=== PATIENT | female | born 1995 | race African-American/Black ===

== ENCOUNTER 2018-12-09 20:13 | Emergency (ER) | payer OTHER ==
[2018-12-09 20:24] VITALS: BP 125/85
--- NOTE | 2018-12-09 21:14 | ED Physician Documentation ---
History of Present Illness - Stated complaint Stated Complaint: RASH ON LEGS/ARMS - Chief complaint Chief Complaint: General - Additonal information Additional information: This is a 22-year-old female who is presenting with some itchy red spots on her legs for the last several days. Patient recently visited her family in [place], she was outside and walking grass, she was also in the household that did have some pets. She began developing some red spots on her legs which are itchy, she has noticed a few new ones over the past day in her lower legs as well as 1-2 on her arms. None on her torso or back. They are not painful. She denies any fever, chills, and otherwise feels well. Her partner who was in the same room as her did get a couple spots on his feet as well, but he has not had as much itching as she has. Review of Systems Constitutional: denies: Fever Throat: denies: Oral lesions / sores GI: denies: Abdominal Pain Skin: reports: Rash PD PAST MEDICAL HISTORY - Past Medical History Past Medical History: No - Past Surgical History Past Surgical History: No - Present Medications Home Medications: Ambulatory Orders Medication Instructions Recorded Confirmed RX: Hydrocortisone 1% Oint 28 gm TP TID PRN 7 Days #1 tube 12/09/18 [Hydrocortisone] diphenhydrAMINE [Benadryl] 25 mg PO Q4-6H PRN #28 capsule 12/09/18 - Allergies Allergies/Adverse Reactions: Allergies Allergy/AdvReac Type Severity Reaction Status Date / Time No Known Drug Allergies Allergy Verified 12/09/18 20:21 - Social History Does the pt smoke?: No Smoking Status: Never smoker Does the pt drink ETOH?: No Does the pt have substance abuse?: No - Immunizations Immunizations are current?: Yes PD ED PE NORMAL - Vitals Vital signs reviewed: Yes - General General: Alert and oriented X 3, No acute distress - HEENT HEENT: PERRL - Neck Neck: Supple, no meningeal sign - Cardiac Cardiac: RRR, No murmur - Respiratory Respiratory: Clear bilaterally - Abdomen Abdomen: Normal bowel sounds, Soft, Non tender, Non distended - Derm Derm: Other (Scattered blanching maculopapular lesions which are around 1.5 cm in diameter, with some superficial excoriations over several of them. There is no pustules, no necrosis, no linear burrowing. These are scattered over the lower legs. There are 1-2 over the arms, other regions of the body are spared.) - Extremities Extremities: No deformity - Neuro Neuro: Alert and oriented X 3 - Psych Psych: Normal mood, Normal affect Results - Vitals Vitals: Vital Signs - 24 hr 12/09/18 20:21 Temperature 36.5 C Heart Rate 69 Respiratory 14 Rate Blood Pressure 125/85 H O2 Saturation 100 Oxygen O2 Source Room air PD MEDICAL DECISION MAKING - ED course Complexity details: considered differential (Insect bite, urticaria, bedbugs, fleas, allergic reaction, contact dermatitis) ED course: On examination patient is very well-appearing. She has some scattered papules over her lower legs, which do appear to be insect bites. Given her history have a high suspicion that these are flea bites. Her partner also has several similar spots on his feet, though he does not have as much itching. She has no rash on her torso, no involvement of mucosal regions, and the lesions are blanching, no signs of vasculitis or more serious rash at this time. She has had no obvious exposures to allergens, and no systemic symptoms. I discussed the likely diagnosis, recommend that she use topical cortisone, Benadryl as needed for itching, and that she check her house for insects or fleas. I recommended follow-up with her primary care provider, and reviewed return precautions with the patient. She was discharged home. Departure - Departure Disposition: 01 Home, Self Care Clinical Impression: Insect bite Qualifiers: Encounter type: initial encounter Site of insect bite: unspecified site Qualified Code(s): W57.XXXA - Bitten or stung by nonvenomous insect and other nonvenomous arthropods, initial encounter Condition: Good Instructions: Bites Stings Insect Follow-Up: Your,PCP [Other] Prescriptions: diphenhydrAMINE [Benadryl] 25 mg PO Q4-6H PRN #28 capsule PRN Reason: Itching RX: Hydrocortisone 1% Oint [Hydrocortisone] 28 gm TP TID PRN 7 Days #1 tube PRN Reason: Itching Comments: You were seen today for an itchy rash on your legs. I have a high suspicion these are flea bites or another insect bite. Please check your home for any insects such as fleas. You may take Benadryl for itching, this may make you somewhat drowsy. You can also use hydrocortisone cream over the spots. If you are having worsening symptoms or you continue to have new lesions, please follow-up with your primary care provider. Discharge Date/Time: 12/09/18 21:23
== END 2018-12-09 21:23 | disposition home or self-care (01) ==
LOC: ED 20:13
DX: S80.862A Insect bite (nonvenomous), left lower leg, initial encounter (principal); S80.861A Insect bite (nonvenomous), right lower leg, initial encounter; W57.XXXA Bitten or stung by nonvenomous insect and other nonvenomous arthropods, initial encounter
CPT/HCPCS: 99282; 99284

== ENCOUNTER 2019-03-14 10:01 | Emergency (ER) | payer OTHER ==
[2019-03-14 10:11] VITALS: BP 117/91
[2019-03-14] MEDS ORDERED: HYDROcod/ACETAM 5/325 MG TABLET PO STA (10:55)
--- NOTE | 2019-03-14 10:57 | ED Physician Documentation ---
PD HPI LOWER EXT INJURY - Stated complaint Stated Complaint: L KNEE PX - Chief complaint Chief Complaint: Ext Problem - History obtained from History obtained from: Patient - History of Present Illness PD HPI LOW EXT INJURY LOCATION: Left, Knee, Ankle Type of injury: Fall Where injury occurred: Other (dancing last night) Timing - onset: Last night Timing - details: Gradual onset Pain level max: 7 Pain level now: 6 Improved by: Rest, Ice, Immobilization Worsened by: Moving, Palpating Associated symptoms: Swelling. No: Weakness, Numbness, Tingling Contributing factors: No: Anticoagulated Recently seen: Not recently seen Review of Systems Constitutional: denies: Fever, Chills : denies: Now EGA Skin: denies: Rash Musculoskeletal: denies: Neck pain, Back pain Neurologic: denies: Headache, Head injury PD PAST MEDICAL HISTORY - Past Medical History Past Medical History: No - Past Surgical History Past Surgical History: No - Present Medications Home Medications: Ambulatory Orders Medication Instructions Recorded Confirmed Ibuprofen [Motrin] 800 mg PO Q8H PRN #30 tablet 03/14/19 - Allergies Allergies/Adverse Reactions: Allergies Allergy/AdvReac Type Severity Reaction Status Date / Time No Known Drug Allergies Allergy Verified 03/14/19 10:11 - Social History Does the pt smoke?: No Smoking Status: Never smoker Does the pt drink ETOH?: No Does the pt have substance abuse?: No - Immunizations Immunizations are current?: Yes PD ED PE NORMAL - Vitals Vital signs reviewed: Yes - General General: Alert and oriented X 3, No acute distress, Well developed/nourished - HEENT HEENT: PERRL, Moist mucous membranes - Neck Neck: Supple, no meningeal sign - Cardiac Cardiac: RRR, Strong equal pulses - Respiratory Respiratory: No respiratory distress, Clear bilaterally - Back Back: No spinal TTP - Derm Derm: Warm and dry - Extremities Extremities: Other (Mild swelling to the left knee. Diffuse tenderness to palpation, but mainly on the medial aspect of the knee. Also tender palpation over the lateral malleolus of the ankle with mild soft tissue swelling. Normal examination of the remainder of the tibia and fibula. Normal examination of the foot. Patient did not tolerate ligamentous testing well, but ACL, PCL, MCL and LCL appear to be grossly intact. There is a small joint effusion. NVI) - Neuro Neuro: Alert and oriented X 3 - Psych Psych: Normal mood, Normal affect Results - Vitals Vitals: Vital Signs - 24 hr 03/14/19 10:09 Temperature 37.2 C Heart Rate 95 Respiratory 18 Rate Blood Pressure 117/91 H O2 Saturation 99 Oxygen O2 Source Room air - Rads (name of study) Left knee x-ray Radiology: Prelim report reviewed, EMP read contemporaneously, See rad report (Small osseous fragments along the anterior joint space, suspect avulsion fractures possibly arising from the inferior patella. Consider knee MRI for further evaluation on nonurgent basis. ) Left ankle x-ray Radiology: Prelim report reviewed, EMP read contemporaneously, See rad report (No evidence of fracture or dislocation. ) PD MEDICAL DECISION MAKING - ED course Complexity details: reviewed results, re-evaluated patient, considered differential, d/w patient ED course: 23-year-old female with left knee internal derangement. There is a small free bone fragments, anterior to the joint as well. This can be further evaluated with an MRI. She will follow-up with her doctor for this. Ligament testing severely limited secondary to pain. She also has an ankle sprain. Placed in an articulating knee brace and given crutches. Patient counseled regarding signs and symptoms for which I believe and urgent re-evaluation would be necessary. Patient with good understanding of and agreement to plan and is comfortable going home at this time This document was made in part using voice recognition software. While efforts are made to proofread this document, sound alike and grammatical errors may occur. Departure - Departure Disposition: 01 Home, Self Care Clinical Impression: Knee internal derangement Qualifiers: Laterality: left Qualified Code(s): M23.92 - Unspecified internal derangement of left knee Left ankle sprain Qualifiers: Encounter type: initial encounter Involved ligament of ankle: unspecified ligament Qualified Code(s): S93.402A - Sprain of unspecified ligament of left ankle, initial encounter Condition: Good Instructions: ED Sprain Ankle W X Ray, ED Meniscal Injury Knee Poss Follow-Up: your,doctor in 1 week [Other] Prescriptions: Ibuprofen [Motrin] 800 mg PO Q8H PRN #30 tablet PRN Reason: PAIN &/OR FEVER Comments: Follow-up with your doctor within 1 week for repeat evaluation. Your knee will need to be retested when the swelling has decreased. It is recommended that you have an MRI of your knee as well. You may bear weight as tolerated. Small osseous fragments along the anterior joint space, suspect avulsion fractures possibly arising from the inferior patella. Consider knee MRI for further evaluation on nonurgent basis. Discharge Date/Time: 03/14/19 13:30
--- NOTE | 2019-03-14 11:41 | XRAY Report ---
Reason: fall, L knee pain Procedure Date: 03/14/2019 Accession Number: [id number] / [id number] Procedure: XR - Knee 4 View LT CPT Code: Final Report FULL RESULT: EXAM: LEFT KNEE RADIOGRAPHY EXAM DATE: 03/14/2019 11:16 AM. CLINICAL HISTORY: Left knee pain. COMPARISON: None. TECHNIQUE: 3 views. FINDINGS: Bones: Small osseous fragments are seen along the anterior joint space, possible avulsion fractures arising from the inferior patella. Joints: Joint effusion is present. Soft Tissues: Normal. No soft tissue swelling. IMPRESSION: Small osseous fragments along the anterior joint space, suspect avulsion fractures possibly arising from the inferior patella. Consider knee MRI for further evaluation on nonurgent basis. RADIA
--- NOTE | 2019-03-14 11:41 | XRAY Report ---
Reason: fall, L ankle pain Procedure Date: 03/14/2019 Accession Number: [id number] / [id number] Procedure: XR - Ankle 3 View LT CPT Code: Final Report FULL RESULT: EXAM: LEFT ANKLE RADIOGRAPHY EXAM DATE: 03/14/2019 11:16 AM. CLINICAL HISTORY: Fall, ankle pain COMPARISON: None. TECHNIQUE: 3 views. FINDINGS: Bones: No fracture or focal bony lesion. Joints: No evidence of dislocation. Soft Tissues: There is lateral ankle soft tissue swelling. IMPRESSION: No evidence of fracture or dislocation. RADIA
[2019-03-14] MEDS ORDERED: ONDANSETRON ODT 4 MG TABLET TL STA (11:57)
== END 2019-03-14 13:30 | disposition home or self-care (01) ==
LOC: ED 10:01
DX: M23.92 Unspecified internal derangement of left knee (principal); S93.402A Sprain of unspecified ligament of left ankle, initial encounter; W18.30XA Fall on same level, unspecified, initial encounter; Y93.41 Activity, dancing
CPT/HCPCS: 73564; 73610; 99283; A9270; Q0162

== ENCOUNTER 2019-03-18 09:55 | Outpatient (CLI) | payer OTHER ==
--- NOTE | 2019-03-18 22:30 | MRI Report ---
Reason: LT KNEE PAIN AND SWELLING Procedure Date: 03/18/2019 Accession Number: [id number] / [id number] Procedure: MRI - Knee LT W/O CPT Code: Final Report FULL RESULT: EXAM: LEFT KNEE MRI WITHOUT CONTRAST EXAM DATE: 03/18/2019 10:27 AM. CLINICAL HISTORY: Left knee pain and swelling. Post twisting running injury. COMPARISON: None. TECHNIQUE: Multiplanar, multisequence T1-weighted and fluid-sensitive sequences of the knee without contrast. Other: None. FINDINGS: Bones: Mild impaction fractures medial aspect of the patella and anterolateral aspect lateral femoral condyle. Osteochondral defect at the medial patellar facet measuring 2.0 cm transverse by 1.6 cm cranial caudal with the displaced osteochondral fragment along the anterior aspect lateral femoral condyle. Moderate lateral patellar subluxation. 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 Articular Cartilage: In addition to the osteochondral defect medial patellar facet, shallow fissuring/tearing extends over the median ridge. Medial Meniscus: The medial meniscus is intact. Lateral Meniscus: The lateral meniscus is intact. Cruciate Ligaments: The anterior and posterior cruciate ligaments are intact. Collateral Ligaments: The medial collateral and lateral collateral ligamentous structures are intact. Tendons: Minimal reactive edema versus patellar tendinopathy. Quadriceps, popliteus, and semimembranosus tendons unremarkable. Musculature: Moderate edema in the distal aspect vastus lateralis muscle. Mild edema in the distal aspect biceps femoris muscle. Subtle edema in the lateral head gastrocnemius muscle and vastus medialis muscle. Other: Large joint effusion with synovitis. In addition to the osteochondral fragment at the anterior aspect lateral femoral condyle, ill-defined 0.6 cm filling defect in the anterior intercondylar notch. No popliteal cyst. Edema and distortion at the femoral insertion medial patellofemoral ligament. Minimal edema at the patellar insertion. Edema and distortion at the distalmost aspect lateral retinaculum at the junction of the distal patellar tendon. Moderate subcutaneous edema over the anterior and lateral aspect of the knee. Moderate reactive edema in the fat pads. IMPRESSION: 1. Impaction fractures medial aspect patella and anterolateral aspect lateral femoral condyle, consistent with lateral patellar dislocation injury. 2. 2.0 cm osteochondral defect medial patellar facet with displaced fragment located anterior to the lateral femoral condyle. 3. Possible second 0.6 cm osteochondral fragment in the anterior intercondylar notch versus focal synovitis. 4. Strain and partial-thickness tear femoral insertion medial patellofemoral ligament. Strain and partial-thickness tear tibial insertion lateral retinaculum. 5. Mild to moderate reactive edema versus strains in the adjacent musculature, most prominent in the vastus lateralis muscle. 6. Large joint effusion with synovitis. 7. 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 RADIA
== END 2019-03-18 09:56 | disposition home or self-care (01) ==
LOC: DI 09:55
PROVIDERS: ATTEND Student in an Organized Health Care Education/Training Program
DX: S82.092A Other fracture of left patella, initial encounter for closed fracture (principal); S72.422A Displaced fracture of lateral condyle of left femur, initial encounter for closed fracture; S76.112A Strain of left quadriceps muscle, fascia and tendon, initial encounter; M25.462 Effusion, left knee

== ENCOUNTER 2019-03-23 12:04 | Day surgery (SDC) | payer OTHER ==
[2019-03-23 12:31] LABS: HCG UR QUAL NEGATIVE
[2019-03-23] MEDS ORDERED: LACTATED RINGERS 1,000 ML IV ONE ×2 (12:42→15:30)
[2019-03-23] MEDS ORDERED: BUPIVACAINE 0.25% PF 30 ML VIAL ONE (12:53)
[2019-03-23] MEDS ORDERED: EPINEPHrine 1 MG/ML AMP ONE ×2 (12:54→12:56)
--- NOTE | 2019-03-23 12:54 | ANESTHESIA ---
Pre-Anesthesia VS, & Labs - Diagnosis left knee pain - Procedure left knee arthroscopy Vital Signs: Temp Pulse Resp BP Pulse Ox 36.6 C 97 16 134/84 H 97 03/23/19 12:26 03/23/19 12:26 03/23/19 12:26 03/23/19 12:26 03/23/19 12:26 Height 5 ft 4 in Weight (kg) 57.15 kg Body Mass Index 22.8 - Is Patient ?: No Home Medications and Allergies Home Medications: Ambulatory Orders Hydrocodone/Acetaminophen [Hydrocodone-Acetamin 5-325 mg] 1 each PO PRN 03/19/19 oxyCODONE [Roxicodone] 1 PRN PRN 03/23/19 Hydrocodone/Acetaminophen [Hydrocodone-Acetamin 5-325 mg] 1 each PO PRN 03/19/19 oxyCODONE [Roxicodone] 1 PRN PRN 03/23/19 Allergies/Adverse Reactions: Allergies Allergy/AdvReac Type Severity Reaction Status Date / Time No Known Drug Allergies Allergy Verified 03/19/19 09:34 Anes History & Medical History - Anesthetic History Anesthesia Complications: reports: Other-see comment (no anesthetic history) Family history of Anesthesia Complications: Denies Family history of Malignant Hyperthermia: Denies - Medical History Cardiovascular: reports: None Pulmonary: reports: None Gastrointestinal: reports: None Urinary: reports: None Neuro: reports: None Musculoskeletal: reports: None, Other Endocrine/Autoimmune: reports: None Blood Disorders: reports: None Skin: reports: None Smoking Status: Never smoker Psychosocial: reports: No issues indicated Exam General: Alert, Oriented x3, Cooperative, No acute distress Dental: WNL Mouth Openin Fingerbreadth Neck Mobility: Normal Mallampati classification: I Thyromental Distance: less than 4 cm Respiratory: Lungs clear, Normal breath sounds, No respiratory distress, No accessory muscle use Cardiovascular: Regular rate, Normal S1, Normal S2, No murmurs Abdomen: Normal bowel sounds, Soft, No tenderness, No hepatospenomegaly, No masses Extremities: No clubbing, No cyanosis, No edema, Normal pulses, No tenderness/swelling Neurological: Normal gait, Normal speech, Strength at 5/5 X4 ext, Normal tone, Sensation intact, Cranial nerves 3-12 NL, Reflexes 2+ Mental/Cognitive Status: Alert/Oriented X3, Normal for patient Cognitive Status: Within normal limits Plan Anesthesia Type: General Consent for Procedure(s) Verified and Reviewed: Yes Code Status: Attempt Resuscitation ASA classification: 1-Healthy patient Is this case an emergency?: No
[2019-03-23] MEDS ORDERED: SCOPOLAMINE PATCH TOP ONE (13:08)
[2019-03-23] MEDS ORDERED: ROPIVACAINE 0.5% PF 20 ML AMPULE ONE (13:11)
[2019-03-23] MEDS ORDERED: CEFAZOLIN SODIUM IN 0.9 % NACL 2 GM/100 ML BAG IV ONE (13:14)
[2019-03-23] MEDS ORDERED: SODIUM CHLORIDE FLUSH 0.9% 10 ML SYRINGE ONE (13:15)
[2019-03-23] MEDS ORDERED: MIDAZOLAM 2 MG/2 ML VIAL IVP ONE (13:43)
[2019-03-23] MEDS ORDERED: DEXAMETHASONE 4 MG/ML VIAL IVP ONE (13:43)
[2019-03-23] MEDS ORDERED: PROPOFOL 200 MG/20 ML VIAL IVP ONE (13:43)
[2019-03-23] MEDS ORDERED: KETOROLAC 30 MG/ML VIAL IVP ONE (13:43)
[2019-03-23] MEDS ORDERED: ACETAMINOPHEN 1,000 MG/100 ML 100 ML IV ONE (13:43)
[2019-03-23] MEDS ORDERED: fentaNYL 100 MCG/2 ML VIAL IVP ONE (13:43)
[2019-03-23] MEDS ORDERED: ONDANSETRON 4 MG/2 ML VIAL IVP ONE (13:43)
[2019-03-23] MEDS ORDERED: BUPIVACAINE 0.25% PF 30 ML VIAL SUBQ ONE ×3 (16:30→17:05)
[2019-03-23] MEDS ORDERED: ONDANSETRON 4 MG/2 ML VIAL IVP PRN (17:32)
[2019-03-23] MEDS ORDERED: oxyCODONE 5 MG TABLET PO PRN (17:32)
[2019-03-23] MEDS: HYDROmorphone 1 MG/ML CARPUJECT ONE ×2 (17:42→17:58)
--- NOTE | 2019-03-23 17:53 | OPERATIVE REPORT ---
Operative Report - General Procedure Date: 03/23/19 - Procedure Note Estimated Blood Loss (mL): 25 - Other Other Information/Narrative: Date of Procedure: 03/23/2029 Planned Procedure: Left knee arthroscopy, osteochondral fragment debridement versus open reduction internal fixation, possible medial retinaculum plication, possible MPFL reconstruction with allograft Pre-op diagnosis: Left knee traumatic patellar dislocation, with loose intra- articular osteochondral fragment Procedure performed: Left knee arthroscopy, open reduction internal fixation inferomedial patellar osteochondral fragment, MPFL and medial tissue plication Post-op diagnosis: Left knee traumatic patellar dislocation with loose intra- articular osteochondral frag Primary Surgeon: ARYAN AGUERO Secondary Surgeon: Anesthesia: General LMA, regional EBL: 20 ml Tourniquet: 138 minutes, left. Implants: 5 Arthrex chondral darts Indication For Surgery: 23-year-old female who sustained a traumatic dislocation to her left patella when she tripped on a treadmill during her PRT. Radiographs, CT scan and MRI were consistent with a patellar dislocation with a sizable intra-articular free osteochondral fragment. Based on the presence of the osteochondral fragment, as well as relative size, we discussed recommendations for surgery in order to potentially facilitate repair of the fragment to the bone bed. The risks, benefits, and alternatives were discussed. Risks included pain, bleeding, infection, damage to nearby structures and cartilage, implant complications, post traumatic arthritis, continued patellar instability, lack of symptom relief, need for further surgery, DVT, PE, stroke, and . Written consent was obtained. Examination Under Anesthesia: Not performed, in order to minimize potential trauma to the intra-articular fragment Diagnostic Arthroscopy: Large osteochondral fragment in the anterior lateral joint Patella cartilage large inferomedial defect. Trochlear cartilage grossly normal. Medial femoral condyle cartilage grossly normal. Medial tibial plateau cartilage grossly normal . Medial meniscus root appeared intact, no tears appreciated. ACL was stable to probing. PCL was stable to probing. The lateral compartment was not well visualized in order to not displace or further damage the osteochondral fragment. Procedure in Detail: The patient was met in the pre-operative hold area. The patient verified the surgical site as the left knee. The patient then met with anesthesia and a regional field block was placed and then she was brought back to the operating room. The patient was placed supine on the operating table. A general anesthetic was administered and LMA was placed. A nonsterile bump was placed into the left buttock. A well-padded tourniquet was placed on the left thigh. The left lower extremity was then prepped and draped in the usual sterile fashion. A surgical timeout was then performed. The correct patient, the correct procedure, and the correct surgical site were confirmed by everyone in the room. Perioperative antibiotics had been administered. The gracilis allograft was verified in the freezer. After surgical timeout and administration of antibiotics the Escmarch was used to exsanguinate the left lower extremity and the tourniquet was raised. An 11 blade scalpel was used to make an anterolateral and anteromedial arthroscopic portal. The arthroscope was introduced into the knee. A limited diagnostic arthroscopy was performed with the above-stated findings. Once the fragment was visualized and found to contain a large portion of the articular cartilage, the procedure was converted to open. An approximately 6 inch midline incision was drawn over the anterior knee, and the skin so cutaneous tissue was sharply incised with a 10 blade. Subcutaneous tissues were further sharply dissected in line with the incision after cauterization of small crossing vessels to expose the retinaculum, and patella. Full-thickness flaps were developed medially and laterally, and the planned arthrotomy was marked out using the Bovie just lateral to the lateral edge of the VMO, proceeding distally between the superior medial pole of the patella and the VMO, and then medially around the patella leaving in approximately 5 mm cuff of tissue attached to the patella. This incision was sharply made using a 10 blade, through all 3 layers of tissue, completing the medial arthrotomy, taking care not to injure the anterior horn of the medial meniscus. The patella was then laterally subluxed and everted approximately 90 degrees to present the deep face of it. The osteochondral defect was readily apparent along the inferomedial border, and the free fragment was carefully removed from the anterolateral joint. The free fragment was taken to the back table, and cleaned of any residual hematoma. Attention was then turned to repairing the donor site on the deep surface of the patella. The site was prepared gently using curettes. Impacted pieces of cortical bone were gently disimpacted using a Zortman elevator. Once the bony bed had been prepared, the fragment was manipulated into position and secured temporarily with 2 K wires. Fixation was then performed using a sequence of 5 Arthrex chondral darts, with removal of the K wire prior to the last 2 darts. The fragment was reapproximated well to the ute cartilage. And then a series of interrupted [id number] 6-0 Vicryl sutures were placed between the free fragment's cartilage, and the ute cartilage on the patella. Interrupted 3-0 Vicryl in [id number] fashion was used to secure the cartilage to the edge of the patella. Satisfied with repair, the knee was irrigated, and we began our closure. The medial soft tissues at the superior medial corner of the knee were plicated in a pants over vest fashion using two #2 FiberWire's and pants over vest fashion. This was felt to have good tension, and then the arthrotomy was then closed using a running 0 PDS. The tourniquet was let down, the wound was again irrigated and the deep layer was closed using interrupted 0 Vicryl, followed by interrupted 2-0 Vicryl and a running 3-0 Monocryl subcuticular for the skin. Mastisol and Steri-Strips were placed, and 10 cc of quarter percent Marcaine plain was placed david- incisional. The wound was then dressed with Xeroform, and an Aquacel Ag dressing was applied. To provide gentle external compressions and 4 x 4's followed by an ABD were then applied to the anterior knee and held in place with a DANNY stocking. The surgical drapes were removed. The ROM brace was placed and was locked out in full extension. She was awakened and transferred to the recovery room. Postoperative plan: 1. Discharge home from the same day surgery facility once discharge criteria has been met. 2. NWB, knee locked in extension until follow-up. 3. Return to clinic next week for wound check. 4. Full strength aspirin 28 days for DVT prophylaxis.
[2019-03-23 19:45] VITALS: BP 124/64
--- NOTE | 2019-03-23 21:28 | ANESTHESIA PROCEDURE NOTE ---
Diagnosis: knee pain Procedure: left femoral nerve block Consent for Procedure(s) Verified and Reviewed: Yes Height and Weight: Height 5 ft 4 in Weight (kg) 55.4 kg Body Mass Index 22.8 Vital Signs: Temp Pulse Resp BP Pulse Ox 36.8 C 89 18 124/64 98 03/23/19 19:35 03/23/19 19:35 03/23/19 19:35 03/23/19 19:35 03/23/19 19:35 Allergies No Known Drug Allergies Allergy (Verified 03/19/19 09:34) Requesting Provider: Scot Location: PACU ASA classification: 1-Healthy patient Anes. Monitoring and Equipment: Non-invasive BP, Pulse oximetery, Sterile prep and drape Anes. Procedure Start Time: 17:45 Anes. Procedure Stop Time: 17:55 Procedure Notes: Patient experiencing pain despite OLGA block and 10cc local by surgeon. Femoral nerve block by me with US, Ropivicaine 0.5% 20cc total injected. Patient had complete pain relief in 10mins
== END 2019-03-23 19:50 | disposition home or self-care (01) ==
LOC: SDS 12:04 → MS2 18:10 → SDS 19:50
PROVIDERS: ATTEND Orthopaedic Surgery
PROC: 0SJD4ZZ Inspection of Left Knee Joint, Percutaneous Endoscopic Approach (ICD-10-PCS; 2019-03-23)
PROC: 0QSF04Z Reposition Left Patella with Internal Fixation Device, Open Approach (ICD-10-PCS; principal; 2019-03-23 13:30)
DX: S82.012A Displaced osteochondral fracture of left patella, initial encounter for closed fracture (principal); Z53.33 Arthroscopic surgical procedure converted to open procedure
CPT/HCPCS: 81025

== ENCOUNTER 2019-03-24 12:58 | Outpatient (CLI) | payer OTHER | END 2019-03-24 12:59 | disposition critical access hospital (66) | LOC: EMS 12:58 | PROVIDERS: ATTEND Surgery | DX: M25.562 Pain in left knee (principal) | CPT/HCPCS: A0425; A0427 ==

== ENCOUNTER 2019-03-24 13:31 | Emergency (ER) | payer OTHER ==
[2019-03-24] MEDS ORDERED: HYDROmorphone 1 MG/ML CARPUJECT IVP STA ×2 (13:47→15:25)
[2019-03-24] MEDS ORDERED: KETOROLAC 30 MG/ML VIAL IVP STA (13:47)
--- NOTE | 2019-03-24 14:03 | ED Physician Documentation ---
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 She underwent operative repair yesterday. The block wore off in the night and she has been unable to control the pain since that time. Has been taking oxycodone every 4 hours. Taking Motrin and Tylenol as well. Received 7 mg of morphine with EMS with no relief of pain. She is in a knee immobilizer. No fevers. Nothing makes it better or worse. Review of Systems Ten Systems: 10 systems reviewed and negative Constitutional: denies: Fever, Chills Respiratory: denies: Cough GI: denies: Vomiting, Diarrhea Skin: denies: Rash Musculoskeletal: denies: Neck pain, Back pain Neurologic: denies: Headache PD PAST MEDICAL HISTORY - Past Medical History Cardiovascular: None Respiratory: None Neuro: None Endocrine/Autoimmune: None GI: None : None HEENT: None Psych: None Musculoskeletal: None, Other Derm: None - Past Surgical History Past Surgical History: No - Present Medications Home Medications: Ambulatory Orders Medication Instructions Recorded Confirmed Ibuprofen [Motrin] 800 mg PO Q8H PRN #30 tablet 03/14/19 oxyCODONE [Roxicodone] 1 - 2 tab PO Q4HR PRN 03/23/19 03/24/19 Acetaminophen [Tylenol] 3 tab PO Q8HR PRN 03/24/19 03/24/19 Aspirin EC [Ecotrin] 1 tab PO DAILY 03/24/19 03/24/19 Docusate Calcium 240 mg PO PRN PRN 03/24/19 03/24/19 Gabapentin 100 mg PO TID #30 capsule 03/24/19 HYDROmorphone [Dilaudid] 2 - 4 mg PO Q4H PRN #30 tablet 03/24/19 - Allergies Allergies/Adverse Reactions: Allergies Allergy/AdvReac Type Severity Reaction Status Date / Time No Known Drug Allergies Allergy Verified 03/24/19 13:40 - Social History Does the pt smoke?: No Smoking Status: Never smoker Does the pt drink ETOH?: No Does the pt have substance abuse?: No - Immunizations Immunizations are current?: Yes PD ED PE NORMAL - Vitals Vital signs reviewed: Yes - General General: Alert and oriented X 3, Well developed/nourished, Other (crying from pain) - HEENT HEENT: PERRL, Moist mucous membranes - Neck Neck: Supple, no meningeal sign - Cardiac Cardiac: RRR, Strong equal pulses - Respiratory Respiratory: No respiratory distress, Clear bilaterally - Abdomen Abdomen: Soft, Non tender, Non distended - Derm Derm: Warm and dry - Extremities Extremities: Other (L knee - Mild swelling. Dressing in place. No erythema. No drainage. And vi. Good distal pulses.) - Neuro Neuro: Alert and oriented X 3 - Psych Psych: Normal mood, Normal affect Results - Vitals Vitals: Oxygen O2 Source Room air - Labs Labs: Laboratory Tests 03/24/19 03/24/19 14:00 14:00 WBC 9.6 RBC 4.15 L Hgb 12.1 Hct 36.9 L MCV 88.9 MCH 29.2 MCHC 32.8 RDW 12.7 Plt Count 218 MPV 11.0 H Neut # (Auto) 5.9 Lymph # (Auto) 2.6 [place] # (Auto) 1.0 Eos # (Auto) 0.0 Baso # (Auto) 0.0 Absolute Nucleated RBC 0.00 Nucleated RBC % 0.0 Sodium 139 Potassium 3.0 L Chloride 108 Carbon Dioxide 21 Anion Gap 10.0 BUN 8 Creatinine 0.6 Estimated GFR (MDRD) 152 Glucose 103 H Calcium 8.5 PD MEDICAL DECISION MAKING - ED course Complexity details: reviewed old records, reviewed results, re-evaluated patient, considered differential, d/w patient, d/w color consultant ED course: 23-year-old female with uncontrolled pain status post a left knee operation yesterday. Greatly improved in the emergency department with hydromorphone. Dr. Ellison, orthopedics came and evaluated the patient in the emergency department and wrapped her leg in a bulky Carey dressing along with her knee immobilizer which was changed to 10 degrees of flexion. This seemed to help as well. No signs of infection. Will place her on pain medication for home and start gabapentin as well. Patient counseled regarding signs and symptoms for which I believe and urgent re-evaluation would be necessary. Patient with good understanding of and agreement to plan and is comfortable going home at this time This document was made in part using voice recognition software. While efforts are made to proofread this document, sound alike and grammatical errors may occur. Departure - Departure Disposition: 01 Home, Self Care Clinical Impression: Post-operative pain Condition: Good Instructions: ED Post Op Pain Follow-Up: Young Ellison MD [Provider Admit Priv/Credential] - Within 1 week Prescriptions: Gabapentin 100 mg PO TID #30 capsule HYDROmorphone [Dilaudid] 2 - 4 mg PO Q4H PRN #30 tablet PRN Reason: pain Comments: Return if you worsen. Follow-up with your doctor for further care. Go and fill the hydromorphone as this appears to work better for your pain. Do not drink alcohol or drive while on narcotic pain medicine. Note that many narcotic pain relievers also contain tylenol/acetaminophen. Please ensure that your total dose of acetaminophen from all sources does not exceed 3 grams (3000mg) per day. You may constipated on this medication, take a stool softener such as "Colace" twice a day while you are on it. Also recommend a akmo-qva-gmnoqlr laxative such as senna or MiraLAX any day that you do not have a bowel movement. If you received narcotic pain medication in the emergency department, do not drive or operate machinery for the next 24 hours. Discharge Date/Time: 03/24/19 17:52
[2019-03-24 14:08] LABS: BASOPHILS % (AUTO) 0.2 %; EOSINOPHILS % (AUTO) 0.1 %; HGB - HEMOGLOBIN 12.1 g/dL (12.0-16.0); LYMPHOCYTES # (AUTO) 2.6 10^3/uL (1.5-3.5); LYMPHOCYTES % (AUTO) 26.7 %; MEAN CORPUSCULAR HEMOGLOBIN 29.2 pg (27.0-31.0); MEAN CORPUSCULAR HGB CONC 32.8 g/dL (32.0-36.0); MEAN CORPUSCULAR VOLUME 88.9 fL (81.0-99.0); MONOCYTES % (AUTO) 10.7 %; NEUTROPHILS # (AUTO) 5.9 10^3/uL (1.5-6.6); PLT - PLATELET COUNT 218 10^3/uL (130-450); RED BLOOD COUNT 4.15 10^6/uL (4.20-5.40); RED CELL DISTRIBUTION WIDTH 12.7 % (12.0-15.0); WHITE BLOOD COUNT 9.6 x10^3/uL (4.8-10.8)
[2019-03-24 14:22] LABS: CALCIUM 8.5 mg/dL (8.5-10.3); CREATININE 0.6 mg/dL (0.4-1.0)
[2019-03-24] MEDS ORDERED: oxyCODONE 5 MG TABLET PO STA (14:38)
[2019-03-24] MEDS ORDERED: LORazepam 2 MG/ML VIAL IVP STA (15:01)
[2019-03-24] MEDS ORDERED: HYDROmorphone 2 MG TABLET PO STA (15:46)
[2019-03-24 17:36] VITALS: BP 112/62
--- NOTE | 2019-03-24 21:19 | PROVIDER PROGRESS NOTE ---
Subjective - Prog Note Date Prog Note Date: 03/24/19 - Subjective Subjective: 23yo F POD#1 s/p L knee arthroscopy and open patellar osteochondral fragment internal fixation. Pt called into Ortho clinic at [facility] late this morning with increasing pain to left knee despite appropriate medications. Her block wore off at around 1:00am and she had not taken any narcotics since hosiptal discharge, at around 11:00am, her pain continued to increase to the point of tears. Shortly after 12:00 I discussed the situation with her LPO, whom she is staying with, and recommended presentation to ED for evaluation and possible IV pain medication. I discussed patient with Dr Arellano, [facility] ED. Pt transported by [facility] to [facility]. Discussed pt with Dr Arellano following his eval. His exam was reassuring. I evaluated pt at bedside in ED at approx 15:30. She had received toradol IV, morphine IV, dilaudid IV and oxycodone PO. Only dilaudid IV seemed to help, with an appropriate response with 1mg IV. Objective - Vital Signs/Intake & Output Vital Signs: Vital Signs x48h Temp Pulse Resp BP Pulse Ox 03/24/19 17:30 75 14 112/62 99 03/24/19 17:00 76 16 116/74 98 03/24/19 16:30 72 16 118/63 95 03/24/19 16:00 89 16 123/83 H 97 03/24/19 15:30 77 14 104/75 98 03/24/19 15:02 75 20 121/76 99 03/24/19 14:30 79 16 116/65 98 03/24/19 14:00 82 18 125/82 H 99 03/24/19 13:38 37.0 C 93 24 110/78 99 - Objective General Appearance: positive: Severe distress (Severe pain at initial eval, responsive to a second dose of IV dilaudid and 1st dose of PO dilaudid.) Extremities: positive: Other (LLE examined: Surgical adhesive dressing intact and w/o strikethrough. Moderate, non-tense knee effusion, appropriate for POD#1. Thigh and leg compartments soft and compressible. ROM knee deferred 2/2 surgery. Actively flexes and extends toes and ankle. Sensation to light touch decreased distally, sensation to deep palpation intact. Palp DP. Foot warm and well perfused.) - Lab Results Fish Bones: 03/24/19 14:00 03/24/19 14:00 Other Labs: Lab Results x24hrs 03/24/19 03/24/19 Range/Units 14:00 14:00 WBC 9.6 (4.8-10.8) x10^3/uL RBC 4.15 L (4.20-5.40) 10^6/uL Hgb 12.1 (12.0-16.0) g/dL Hct 36.9 L (37.0-47.0) % MCV 88.9 (81.0-99.0) fL MCH 29.2 (27.0-31.0) pg MCHC 32.8 (32.0-36.0) g/dL RDW 12.7 (12.0-15.0) % Plt Count 218 (130-450) 10^3/uL MPV 11.0 H (7.9-10.8) fL Neut # (Auto) 5.9 (1.5-6.6) 10^3/uL Lymph # (Auto) 2.6 (1.5-3.5) 10^3/uL [place] # (Auto) 1.0 (0.0-1.0) 10^3/uL Eos # (Auto) 0.0 (0.0-0.7) 10^3/uL Baso # (Auto) 0.0 (0.0-0.1) 10^3/uL Absolute Nucleated RBC 0.00 x10^3/uL Nucleated RBC % 0.0 /100WBC Sodium 139 (135-145) mmol/L Potassium 3.0 L (3.5-5.0) mmol/L Chloride 108 (101-111) mmol/L Carbon Dioxide 21 (21-32) mmol/L Anion Gap 10.0 (6-13) BUN 8 (6-20) mg/dL Creatinine 0.6 (0.4-1.0) mg/dL Estimated GFR (MDRD) 152 (>89) Glucose 103 H (70-100) mg/dL Calcium 8.5 (8.5-10.3) mg/dL Assessment/Plan - Problem List (1) Post-operative pain Impression: 23yo F with post-operative pain not responsive to planned post-op medications (800mg ibuprofen q8h, 975mg acetaminophen q8 and 10mg oxycodone q4). Exam reassuring. I placed her in a gently compresive bulky velasco and alejandra wrap dressing. She had good response to IV and PO hydromorphone in ED, with a durable response to PO hydromorphone, so she was DC home on PO hydromorphone 2-4mg PO q4H. Pt also started on gabapentin 100mg to help cover neuropathic pain. Dr Arellano provided me with a update when she discharged. She will follow up in clinic next week for a wound check and futher medication adjustement as needed.
== END 2019-03-24 17:52 | disposition home or self-care (01) ==
LOC: EDUNIT# → ED 13:31
DX: G89.18 Other acute postprocedural pain (principal); M25.562 Pain in left knee; Z98.890 Other specified postprocedural states
CPT/HCPCS: 36415; 80048; 85025; 96374; 96375; 96376; 99283; 99285; A9270; J1170; J2060

== ENCOUNTER 2019-06-08 12:48 | Day surgery (SDC) | payer OTHER ==
[2019-06-08] MEDS ORDERED: ACETAMINOPHEN 1,000 MG/100 ML 100 ML IV ONE ×2 (12:51→15:26)
[2019-06-08] MEDS ORDERED: CELECOXIB 100 MG CAPSULE PO ONE (12:51)
[2019-06-08] MEDS ORDERED: GABAPENTIN 400 MG CAPSULE ONE (12:51)
[2019-06-08] MEDS ORDERED: CEFAZOLIN SODIUM IN 0.9 % NACL 2 GM/100 ML BAG IV ONE (12:52)
[2019-06-08] MEDS ORDERED: LACTATED RINGERS 1,000 ML IV ONE ×2 (12:57→16:08)
[2019-06-08 13:10] LABS: HCG UR QUAL NEGATIVE
[2019-06-08] MEDS ORDERED: EPINEPHrine 1 MG/ML AMP ONE (14:38)
[2019-06-08] MEDS ORDERED: BUPIVACAINE 0.25% PF 30 ML VIAL ONE (14:38)
--- NOTE | 2019-06-08 14:39 | ANESTHESIA ---
Pre-Anesthesia VS, & Labs - Diagnosis left knee manupulaton marian anesthesia, arthroscopic versus open lysis of adhesions Vital Signs: Temp Pulse Resp BP Pulse Ox 36.9 C 68 16 122/87 H 100 06/08/19 13:09 06/08/19 13:09 06/08/19 13:09 06/08/19 13:09 06/08/19 13:09 Height 5 ft 2 in Weight (kg) 54.1 kg Body Mass Index 20.9 - NPO >8 hours - Is Patient ?: No Home Medications and Allergies Home Medications: Ambulatory Orders No Known Home Medications 06/07/19 No Known Home Medications 06/07/19 Allergies/Adverse Reactions: Allergies Allergy/AdvReac Type Severity Reaction Status Date / Time No Known Drug Allergies Allergy Verified 06/08/19 13:07 Anes History & Medical History - Medical History Cardiovascular: reports: None Pulmonary: reports: None Gastrointestinal: reports: None Urinary: reports: None Neuro: reports: None Musculoskeletal: reports: Other Endocrine/Autoimmune: reports: None Blood Disorders: reports: None Skin: reports: None Smoking Status: Never smoker - Surgical History Orthopedic: 
--- NOTE | 2019-06-08 14:51 | ANESTHESIA ---
Pre-Anesthesia VS, & Labs - Diagnosis left knee arthrofibrosis - Procedure left knee arthroscopy Vital Signs: Temp Pulse Resp BP Pulse Ox 36.9 C 68 16 122/87 H 100 06/08/19 13:09 06/08/19 13:09 06/08/19 13:09 06/08/19 13:09 06/08/19 13:09 Height 5 ft 2 in Weight (kg) 54.1 kg Body Mass Index 20.9 - Is Patient ?: No Home Medications and Allergies Home Medications: Ambulatory Orders No Known Home Medications 06/07/19 No Known Home Medications 06/07/19 Allergies/Adverse Reactions: Allergies Allergy/AdvReac Type Severity Reaction Status Date / Time No Known Drug Allergies Allergy Verified 06/08/19 13:07 Anes History & Medical History - Anesthetic History Anesthesia Complications: reports: No previous complications Family history of Anesthesia Complications: Denies Family history of Malignant Hyperthermia: Denies - Medical History Cardiovascular: reports: None Pulmonary: reports: None Gastrointestinal: reports: None Urinary: reports: None Neuro: reports: None Musculoskeletal: reports: Other Endocrine/Autoimmune: reports: None Blood Disorders: reports: None Skin: reports: None Smoking Status: Never smoker Psychosocial: reports: No issues indicated - Surgical History Orthopedic: Other (left knee arthroscopy in 2018) Exam General: Alert, Oriented x3, Cooperative, No acute distress Dental: WNL Mouth Openin Fingerbreadth Neck Mobility: Normal Mallampati classification: II Thyromental Distance: 4-6 cm Respiratory: Lungs clear, Normal breath sounds, No respiratory distress, No accessory muscle use Cardiovascular: Regular rate, Normal S1, Normal S2, No murmurs Abdomen: Normal bowel sounds, Soft, No tenderness, No hepatospenomegaly, No masses Extremities: No clubbing, No cyanosis, No edema, Normal pulses, No tenderness/swelling Neurological: Normal gait, Normal speech, Strength at 5/5 X4 ext, Normal tone, Sensation intact, Cranial nerves 3-12 NL, Reflexes 2+ Mental/Cognitive Status: Alert/Oriented X3, Normal for patient Cognitive Status: Within normal limits Plan Anesthesia Type: General, Femoral Block Regional Block: Per Surgeon's request for Post Op pain control Consent for Procedure(s) Verified and Reviewed: Yes Code Status: Attempt Resuscitation ASA classification: 1-Healthy patient Is this case an emergency?: No
[2019-06-08] MEDS ORDERED: LIDOCAINE 1%-EPI 1:100000 20 ML MDV ONE (15:14)
[2019-06-08] MEDS ORDERED: MIDAZOLAM 2 MG/2 ML VIAL IVP ONE (15:26)
[2019-06-08] MEDS ORDERED: NEOSTIGMINE 1 MG/1 ML 10 ML MDV IVP ONE (15:26)
[2019-06-08] MEDS ORDERED: PROPOFOL 200 MG/20 ML VIAL IVP ONE (15:26)
[2019-06-08] MEDS ORDERED: ROCURONIUM 50 MG/5 ML VIAL IVP ONE (15:26)
[2019-06-08] MEDS ORDERED: ONDANSETRON 4 MG/2 ML VIAL IVP ONE (15:26)
[2019-06-08] MEDS ORDERED: PHENYLEPHRINE 10 MG/ML VIAL IV ONE (15:26)
[2019-06-08] MEDS ORDERED: DEXAMETHASONE 4 MG/ML VIAL IVP ONE (15:26)
[2019-06-08] MEDS ORDERED: GLYCOPYRROLATE 1 MG/5 ML VIAL IVP ONE (15:26)
[2019-06-08] MEDS ORDERED: fentaNYL 100 MCG/2 ML VIAL IVP ONE (15:26)
[2019-06-08] MEDS ORDERED: LIDOCAINE-MPF 2% 5 ML VIAL IM ONE (15:26)
[2019-06-08] MEDS ORDERED: LIDOCAINE 1%-EPI 1:100000 20 ML MDV SUBQ ONE (17:27)
[2019-06-08] MEDS ORDERED: BUPIVACAINE 0.25% PF 30 ML VIAL SUBQ ONE (17:35)
[2019-06-08] MEDS ORDERED: HYDROmorphone 0.5 MG/0.5 ML SYRINGE IVP PRN (17:47)
[2019-06-08] MEDS ORDERED: ONDANSETRON 4 MG/2 ML VIAL IVP PRN (17:47)
[2019-06-08] MEDS ORDERED: HYDROmorphone 2 MG TABLET PO PRN (17:52)
[2019-06-08] MEDS ORDERED: PROMETHAZINE 12.5 MG TABLET PO PRN (17:53)
[2019-06-08] MEDS ORDERED: ONDANSETRON 4 MG/2 ML VIAL ONE (17:54)
--- NOTE | 2019-06-08 18:06 | OPERATIVE REPORT ---
Operative Report - General Procedure Date: 06/08/19 - Procedure Note Estimated Blood Loss (mL): 25 - Other Other Information/Narrative: Pre-op diagnosis: Left knee arthrofibrosis Procedure performed: Left knee manipulation under anesthesia, arthroscopic lysis of adhesions, open suture removal Post-op diagnosis: Left knee arthrofibrosis Primary Surgeon: ARYAN AGUERO Secondary Surgeon: Anesthesia: Left femoral nerve block general endotracheal anesthesia EBL: 25 ml Tourniquet: 70 minutes, left thigh at 250mmHg. Arthroscopic findings left knee: 1. Patella: It appeared that the previously fixed osteochondral lesion had healed, there was some chondral wear, but no unstable pieces 2. Trochlea: Normal 3. Medial Compartment: Significant scar tissue anteriorly and in the gutter 4. Lateral Compartment: Significant scar tissue anteriorly and in the gutter 5. ACL and PCL: Intact and intact COMPLICATIONS: none IMPLANTS: None Indications for surgery: The patient is a 23-year-old female who is approximately 3 months status post left knee arthroscopy and open reduction internal fixation of an inferior medial patellar osteochondral fragment after traumatic patellar dislocation. She has been undergoing postop recovery, however her knee range of motion had stalled out at approximately 100 degrees despite aggressive physical therapy. Additionally, over the last 1 to 2 weeks, she noticed what feels to be a suture knot in the soft tissues superomedial to the patella. The risks, benefits, and alternatives were discussed. Risks include pain, bleeding, infection, damage to nearby structures femoral shaft fracture, patellar tendon or quadriceps tendon rupture and cartilage, lack of symptom relief, need for further surgery, DVT, PE, stroke, and . Written consent was obtained. Procedure Details: The patient was met in the pre-operative hold area. Persistence of symptoms and consent was verified. The patient verified the surgical site as the left knee. The operative knee was initialed per our standard protocol using surgical marker. The patient then met with anesthesia and a femoral nerve block was placed. The patient was brought back to the operating room. The patient was placed supine on the operating table. A general anesthetic was administered and endotracheal tube was placed. A surgical timeout was performed verifying the correct patient, correct procedure, and surgical site. After verifying complete paralysis, the leg was elevated against gravity, and flexed to only approximately 100 degrees. Gentle pressure was placed on the proximal tibia, and almost immediately a series of small gives was felt with immediate improvement in range of motion. We then placed a well-padded tourniquet was placed on the left thigh. The planned surgical sites were then infiltrated with 1% lidocaine with epinephrine for a total of 20 mL. The left lower extremity was then prepped and draped in the usual sterile fashion. The Escmarch was used to exsanguinate the left lower extremity and the tourniquet was raised. An 11 blade scalpel was used to make an anterolateral arthroscopic portal, the anteromedial was created using needle localization and direct visualization. The arthroscope was introduced into the knee and a diagnostic arthroscopy was performed with the above-stated findings. An king-medial superior portal was created using needle localization to assist with debridement. There was diffuse and significant intra-articular adhesions and scar tissue formation. This was systematically debrided from the suprapatellar pouch, medial and lateral gutters, and anterior compartment. The fat pad behind the patellar tendon was debrided with a combination of sucker shaver and electrocautery. Following debridement, bleeding points were cauterized using electrocautery. The water was shut off and the knee was depressurized and additional bleeding points were identified and cauterized. Satisfied with the intra-articular debridement, the water was drained and we turned our attention to the open portion of the procedure. An approximately 1 inch incision was marked out along the proximal prior incision. The skin was sharply divided with a knife and the subcutaneous tissues were dissected down to the level of the quadriceps tendon and patellar retinaculum. Finger dissection was used to develop a layer medially, and a prominent knot and a suture tail was almost immediately felt. This was removed with a combination of rongeurs and Metzenbaum scissors. Following removal additional palpation was performed and 2 other knots were identified. These were removed in similar fashion. Finger palpation was again used, and no further suture was felt. The wound was irrigated and then closed in layers using 0 Vicryl deep, 2-0 Vicryl for the subcutaneous tissue. The tourniquet was lowered and the skin was closed using a running 3-0 Monocryl in subcuticular fashion. The portals were closed using 3-0 Monocryl portal stitches. Mastisol and Steri-Strips were applied, followed by Xeroform gauze, 4x4 gauze, an ABD. final maximal flexion and gravity flexion pictures were obtained,. The surgical drapes were taken down, a gently compressive Hussein bandage was placed followed by a gently compressive DANNY hose Hussein bandage. The patient was awoken from anesthesia, transferred to the hospital bed, and taken to the PACU for recovery in good condition. Postoperative plan: 1. Discharge home from the same day surgery facility once the patient has met discharge criteria. 2. Advance weightbearing as tolerated, range of motion as tolerated, and wean from crutches as tolerated as gait normalizes. Start CPM use this evening, start physical therapy on postop day 1. Physical therapy daily. 3. Return to clinic in7-10 days for wound check. 4. Allow advancement of activities as tolerated with full clearance for all activities anticipated in 8-12 weeks postoperatively.
[2019-06-08] MEDS ORDERED: HYDROmorphone 0.5 MG/0.5 ML SYRINGE ONE (18:29)
[2019-06-08 19:27] VITALS: BP 124/71
== END 2019-06-08 19:46 | disposition home or self-care (01) ==
LOC: SDS 12:48 → MS2 18:37 → SDS 19:46
PROVIDERS: ATTEND Orthopaedic Surgery
DX: M24.662 Ankylosis, left knee (principal); M79.5 Residual foreign body in soft tissue
CPT/HCPCS: 81025